=== PATIENT | male | born 1955 | race Caucasian/White ===

== ENCOUNTER → 2019-08-20 12:54 | Outpatient (CLI) | payer BC, SELFPAY ==
--- NOTE | ~2019-08-20 | MR_ITS ---
EXAMINATION: MR cervical spine wo con EXAM DATE: 08/20/2019 13:53 INDICATION: Cervical spondylosis. Posterior headaches. Neck pain. TECHNIQUE: Multi-sequential, multiplanar MR images of the cervical spine were obtained without contra st. Axial T2, axial T2 MERGE sequence. Sagittal T1, T2, T2 fat saturation images also obtained. Th ere is no prior study for comparison. FINDINGS: Probable ossification posterior longitudinal ligament with narrow mid cervical spinal skyla l, small regions of increased T2 cord signal intensity posterior to the C4 and C5 vertebral bodies wi thout expansion, appearance most consistent with myelomalacia from chronic cord compression. There is moderate disc disease from C3-C7 The vertebral bodies are aligned in the AP dimension. Cervicomedull liz junction is normal in appearance. Paraspinal soft tissue is unremarkable. Level by level evaluation: C2-C3: Disc does not extend beyond the endplate margin. Uncovertebral joint arthropathy: Mild to moderate bilateral. Facet joint arthropathy: Moderate right, mild left. Neural foraminal stenosis: Mild bilateral. Central canal stenosis: No stenosis. C3-C4: There is a mild to moderate diffuse disc bulge. Uncovertebral joint arthropathy: Moderate to severe. Facet joint arthropathy: Mild to moderate bilateral. Neural foraminal stenosis: Severe. Central canal stenosis: Moderate . Cord being flattened. Central canal measures 5 mm in mid sagittal AP diameter . C4-C5: There is a moderate diffuse disc bulge asymmetric to the right Uncovertebral joint arthropathy: Severe right, moderate to severe left. Facet joint arthropathy: Moderate right, mild left. Neural foraminal stenosis: Severe right, moderate left. Central canal stenosis: Moderate. Cord being flattened . Central canal measures 5-6 mm in mid sagittal AP diameter . C5-C6: There is a mild to moderate diffuse disc bulge. Uncovertebral joint arthropathy: Moderate bilateral. Facet joint arthropathy: Mild bilateral. Neural foraminal stenosis: Mild to moderate right, mild left. Central canal stenosis: Mild to moderate . Central canal measures 7 mm in mid sagittal AP diameter . C6-C7: There is a moderate diffuse disc bulge. Uncovertebral joint arthropathy: Moderate to severe left, moderate right. Facet joint arthropathy: Mild bilateral. Neural foraminal stenosis: Moderate to severe left, moderate right. Central canal stenosis: Mild . Central canal measures 6-7 mm in mid sagittal AP diameter . C7-T1: There is a mild diffuse disc bulge. Uncovertebral joint arthropathy: Moderate. Facet joint arthropathy: Moderate left, mild right. Neural foraminal stenosis: Moderate to severe left, mild right. Central canal stenosis: Minimal. 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 Increased cord si gnal posterior to C4 and C5 most likely myelomalacia from chronic compression. Reviewed, dictated and finalized at location A. IMPRESSION: Probable ossification of posterior longitudinal ligament contributi ng to moderate midcervical Central canal, with the cord is being flattened most ly at C3-4 and 4-5 levels. Increased cord signal posterior to C4 and C5 most li julián myelomalacia from chronic compression.
== END ==
PROVIDERS: Visit Provider Chiropractor
DX: M54.12 Radiculopathy, cervical region (principal)
CPT/HCPCS: 72141

== ENCOUNTER 2020-04-18 01:43 | Outpatient (CLI) | payer BC, SELFPAY ==
[2020-04-19 02:42] LABS: SARS-CoV-2 RNA PCR Positive
== END 2020-04-18 01:44 | disposition home or self-care (01) ==
LOC: ANHCOVIDDT 01:43
PROVIDERS: PCP Internal Medicine; Visit Provider Internal Medicine Gastroenterology
DX: U07.1 COVID-19 (principal)
CPT/HCPCS: 87635; C9803; U0003

== ENCOUNTER 2020-05-19 00:33 | Outpatient (CLI) | payer BC, SELFPAY ==
[2020-05-19 18:51] LABS: SARS-CoV-2 RNA PCR Positive
== END 2020-05-19 00:34 | disposition home or self-care (01) ==
LOC: ANHCOVIDDT 00:33
PROVIDERS: PCP Internal Medicine; Visit Provider Internal Medicine Gastroenterology
DX: U07.1 COVID-19 (principal)
CPT/HCPCS: 87635; C9803; U0003

== ENCOUNTER 2020-08-12 00:46 | Day surgery (SDC) | payer BC, SELFPAY ==
[2020-04-16 13:25] VITALS: BMI 34.8
[2020-05-13 13:35] VITALS: BMI 35.4
--- NOTE | 2020-05-20 08:22 | SUR.PREOP ---
Patient notified of positive Covid test results. Patient states he is not surprised. He did state he was asymptomatic. Informed that health department will be following up with him. Instructed to call primary doctor of test result and to come to the ER if symptoms arise and he is in need of medical attention. Notified Dr Starks office of cancellation.
--- NOTE | 2020-08-05 15:17 | PC.NURSE ---
Patient denies any changes in health history. Updated on times and visitor restrictions.
[2020-08-12 07:00] VITALS: BP 155/86; PULSE 88; RESP 16; TEMP 36.1; O2SAT 95
[2020-08-12] MEDS: LACTATED RINGERS 1,000 ML 150 ML IV CONT (07:05)
--- NOTE | 2020-08-12 07:50 | WPDANESEPPF ---
Anes - Initial Pre Proc Eval Procedure: Operation Date: 08/12/20 08:30 Proposed Procedures p Screening Colonoscopy - Tariq Parsons MD Date/Time: 08/12/20 07:50 Surgeon: Tariq Parsons MD Pre Op Diagnosis: Neoplasm Screening, hx of colon polyps,fam hx of c Patient Data Age: 64 Gender: M Height: 1.75 m Weight: 110.5 kg Last Vital Signs Temp 36.1 C L 08/12/20 07:00 Pulse 88 08/12/20 07:00 Resp 16 08/12/20 07:00 BP 155/86 H 08/12/20 07:00 Pulse Ox 95 08/12/20 07:00 Allergies Allergy/AdvReac Type Severity Reaction Status Date / Time Penicillins Allergy Mild Itching Verified 06/17/20 08:54 Home Medications Medication Instructions Recorded Confirmed Type atorvastatin 20 mg tablet 20 mg PO DAILY #90 tablet 08/22/19 06/17/20 Rx felodipine 10 mg tablet,extended 10 mg PO DAILY #90 tablet 04/15/20 06/17/20 Rx release 24 hr lisinopril 20 1 tablet PO DAILY #90 tablet 04/17/20 06/17/20 Rx mg-hydrochlorothiazide 25 mg tablet cyclobenzaprine 10 mg tablet 10 mg PO .HS PRN #30 tablet 06/17/20 08/05/20 Rx Patient hx anesthesia problems: none Family hx anesthesia problems: none PMFSH Past Medical History Medical History (Updated 08/12/20 @ 07:54 by Coleman Concepcion MD) HTN (hypertension) Hypercholesterolemia Obesity SOWMYA on CPAP Family History Family History Mother Patient's mother is Carcinoma of colon Father Patient's father is Acute myocardial infarction Sibling Family history of diabetes mellitus in first degree relative Other Diabetes mellitus Family history of cardiovascular disease Hypertension Social History Social History Smoking status: Never smoker Second hand tobacco smoke exposure: Yes Alcohol intake: current Drinks per week: 12 Substance use: never Substance use type: does not use Living arrangements: with friend(s) Spiritual care concerns: No Anes - Eval Final PreProcedure Day of Procedure 08/12/20 07:50 Patient weight: obese Heart: regular rate and rhythm Lungs: clear to auscultation and normal air movement Airway: Mallampati scale class II Neurological: alert and oriented Last oral intake: >/= 8 hours ASA classification: III Emergent: no Anesthetic plan: proceed Anesthesia type and monitoring: general GIVS Informed Consent: The patient's anesthetic plan and its attendant risks and benefits were discussed with the patient/family/POA. Questions were solicited and answers provided to the satisfaction of the patient/family/POA.
[2020-08-12 08:38] VITALS: BP 113/76; PULSE 75; RESP 14; O2SAT 95
[2020-08-12 08:48] VITALS: BP 122/74; PULSE 67; RESP 13; O2SAT 95
[2020-08-12 08:58] VITALS: BP 144/89; PULSE 69; RESP 16; O2SAT 100
--- NOTE | 2020-08-19 10:38 | PM.HPGS ---
History of Present Illness History of Present Illness Consent: Risks, benefits, and alternatives have been discussed and questions answered. Patient agrees to proceed with procedure. Chief complaint: Neoplasm Screening, hx of colon polyps,fam hx of c Narrative: Leonard Stevens is a 64 year old male referred for colon cancer screening Review of Systems Review of Systems: All systems reviewed & are unremarkable except as noted in HPI and below PMFSH Past Medical History Medical History HTN (hypertension) Hypercholesterolemia Obesity SOWMYA on CPAP Family History Family History Mother Patient's mother is Carcinoma of colon Father Patient's father is Acute myocardial infarction Sibling Family history of diabetes mellitus in first degree relative Other Diabetes mellitus Family history of cardiovascular disease Hypertension Social History Social History Smoking status: Never smoker Second hand tobacco smoke exposure: Yes Alcohol intake: current Drinks per week: 12 Substance use: never Substance use type: does not use Living arrangements: with friend(s) Spiritual care concerns: No Meds Home Medications and Allergies Home Medications Medication Instructions Recorded Confirmed Type atorvastatin 20 mg tablet 20 mg PO DAILY #90 tablet 08/22/19 06/17/20 Rx felodipine 10 mg tablet,extended 10 mg PO DAILY #90 tablet 04/15/20 06/17/20 Rx release 24 hr lisinopril 20 1 tablet PO DAILY #90 tablet 04/17/20 06/17/20 Rx mg-hydrochlorothiazide 25 mg tablet cyclobenzaprine 10 mg tablet 10 mg PO .HS PRN #30 tablet 06/17/20 08/05/20 Rx Allergies Allergy/AdvReac Type Severity Reaction Status Date / Time Penicillins Allergy Mild Itching Verified 06/17/20 08:54 Exam Resp: Auscultation: clear to auscultation bilaterally Cardio: Rate: regular rate Rhythm: regular rhythm GI: GI Palp: Yes Soft to palpation and No Tenderness to palpation present (GI) Assessment and Plan Assessment and plan (1) Colon cancer screening: Code(s): Z12.11 - Encounter for screening for malignant neoplasm of colon Status: Acute Assessment and Plan: Colonoscopy with possible biopsy or polypectomy or cautery or injection of substances.
== END 2020-08-12 09:09 | disposition home or self-care (01) ==
PROVIDERS: PCP Internal Medicine; Visit Provider Internal Medicine Gastroenterology
PROC: 0DJD8ZZ Inspection of Lower Intestinal Tract, Via Natural or Artificial Opening Endoscopic (ICD-10-PCS; CPT 45378; principal; 2020-08-12 08:30)
DX: Z12.11 Encounter for screening for malignant neoplasm of colon (principal); Z86.010 Personal history of colon polyps; I10 Essential (primary) hypertension; E78.00 Pure hypercholesterolemia, unspecified; G47.33 Obstructive sleep apnea (adult) (pediatric); E66.9 Obesity, unspecified; Z68.36 Body mass index [BMI] 36.0-36.9, adult; Z80.0 Family history of malignant neoplasm of digestive organs
CPT/HCPCS: 45378; J2704; J7120

== ENCOUNTER 2021-03-02 08:47 | Outpatient (CLI) | payer BC, SELFPAY ==
--- NOTE | 2021-03-02 11:30 | NEURO_ITS ---
Impression: # Complains of numbness of right lower extremity. 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 # No evidence of Tarsal Tunnel Syndrome. # Normal needle/EMG exam. Nerve Conduction Studies Anti Sensory Summary Table Stim Site NR Peak (ms) P-T Amp (?V) Site1 Site2 Delta-P (ms) Dist (cm) Ag (m/s) Right Sup Fibular Anti Sensory (Ant Lat Mall) 14 cm 3.7 3.3 14 cm Ant Lat Mall 3.7 16.0 43 Right Sural Anti Sensory (Lat Mall) Calf 3.6 15.4 Calf Lat Mall 3.6 16.0 44 Motor Summary Table Stim Site NR Onset (ms) O-P Amp (mV) Site1 Site2 Delta-0 (ms) Dist (cm) Ag (m/s) Right Lateral Plantar Motor (ADM) Med Mall 4.8 0.9 Right Peroneal Motor (Vastus Med) Ankle 5.2 1.3 Popit Ankle 9.7 37.0 38 Popit 14.9 2.6 Right Tibial Motor (Abd Francis Brev) Ankle 4.8 0.3 Knee Ankle 11.8 44.0 37 Knee 16.6 0.2 F Wave Studies NR F-Lat (ms) L-R F-Lat (ms) Right Peroneal (Mrkrs) (EDB) 57.81 Right Tibial (Mrkrs) (Abd Hallucis) 56.61 EMG Side Muscle Nerve Root Ins Act Fibs Amp Dur Recrt Comment Right AntTibialis Dp Br Fibular L4-5 Nml Nml Nml Nml Nml Right Gastroc Tibial S1-2 Nml Nml Nml Nml Nml Right Fibularis Long Sup Br Fibular L5-S1 Nml Nml Nml Nml Nml Right Flex Dig Long Tibial L5-S2 Nml Nml Nml Nml Nml Right Ext Dig Brev Dp Br Fibular L5, S1 Nml Nml Nml Nml Nml Right QuadratusFem QuadFemoris L4-5, S1 Nml Nml Nml Nml Nml MTDD
== END 2021-03-02 08:48 | disposition home or self-care (01) ==
PROVIDERS: PCP Internal Medicine; Visit Provider Internal Medicine
DX: R20.2 Paresthesia of skin (principal)
CPT/HCPCS: 95886; 95908

== ENCOUNTER 2022-09-06 11:22 | Outpatient (CLI) | payer BC, SELFPAY ==
[2022-09-06 12:25] LABS: Influenza A QL RT-PCR Negative (Negative); Influenza B QL RT-PCR Negative (Negative); SARS-CoV-2 RNA PCR Negative
== END 2022-09-06 11:23 | disposition home or self-care (01) ==
LOC: ANHLAB 11:22
PROVIDERS: PCP Internal Medicine; Visit Provider Internal Medicine
DX: R50.9 Fever, unspecified (principal)
CPT/HCPCS: 87636